=== PATIENT | female | born 1985 | race Caucasian/White ===

== ENCOUNTER 2017-02-20 01:05 | Inpatient (IN) | payer OTHER ==
[2017-02-20] MEDS ORDERED: TERBUTALINE SULFATE 1 MG/ML VIAL IV PRN (07:53)
[2017-02-20] MEDS ORDERED: LIDOCAINE 1% 30 ML SDV SC PRN (07:53)
[2017-02-20] MEDS ORDERED: LR 500 ML IV PRN (07:53)
[2017-02-20] MEDS ORDERED: LR 1,000 ML IV PRN (07:53)
[2017-02-20] MEDS ORDERED: EPSOM SALT 454 GM TP PRN (07:53)
[2017-02-20] MEDS ORDERED: OLIVE OIL 118 ML BTL MISC PRN (07:53)
[2017-02-20] MEDS ORDERED: OXYTOCIN/RINGERS LACTATE 1,000 ML IV PRN (07:53)
[2017-02-20] MEDS ORDERED: OLIVE OIL 118 ML BTL ONE (08:00)
[2017-02-20] MEDS ORDERED: OXYTOCIN/RINGERS LACTATE 500 ML IV SCH (08:00)
[2017-02-20] MEDS ORDERED: AMMONIA AROMATIC 1 EACH AMP IH ONE (08:00)
[2017-02-20] MEDS ORDERED: LIDOCAINE 1% 30 ML SDV ONE (08:00)
[2017-02-20] MEDS ORDERED: MISOPROSTOL 200 MCG TAB ONE (08:01)
[2017-02-20] MEDS ORDERED: TERBUTALINE SULFATE 1 MG/ML VIAL ONE (08:01)
[2017-02-20] MEDS ORDERED: OXYTOCIN 10 UNIT/ML VIAL ONE (08:01)
[2017-02-20 08:39] LABS: ABSOLUTE IMMATURE GRANULOCYTES 0.13 10^3/uL (0.00-0.10); ADD DIFF? NO; ADD MORPH? NO; ADD SCAN? NO; ATYPICAL LYMPHOCYTE FLAG 0 (0-99); FRAGMENT RBC FLAG 0 (0-99); HEMATOCRIT 37.5 % (38.0-47.0); HEMOGLOBIN 12.8 g/dL (12.6-16.3); LEFT SHIFT FLG 0 (0-99); LIPEMIA HEMOLYSIS FLAG 90 (0-99); MEAN CELL HEMOGLOBIN CONCENTR. 34.1 g/dL (32.4-36.7); MEAN CELL VOLUME 90.8 fL (81.5-99.8); MEAN PLATELET VOLUME 10.1 fL (8.7-11.7); PLATELET CLUMPS FLAG 0 (0-99); PLATELET COUNT 189 10^3/uL (150-400); RED BLOOD CELL COUNT 4.13 10^6/uL (4.18-5.33); RED CELL DISTRIBUTION WIDTH 12.7 % (11.5-15.2)
--- NOTE | 2017-02-20 10:19 | GHP ---
[f rep st] PREOP HISTORY AND PHYSICAL DATE OF ADMISSION: 02/20/2017 ADMISSION DIAGNOSIS: Intrauterine at 39-5/7 weeks gestation with prodromal labor. HISTORY OF PRESENT ILLNESS: The patient is a 31-year-old 2 para 1-0-0-1, with a last menstr ual period of 05/18/2016, and an EDC of 02/22/2017, which was confirmed by a 9-week ultrasound. She has had good care at [facility] since registration at 9 weeks, and has no signif icant risk factors. She had normal labs on this . Her initial anatomy ultrasound revealed an estimated weight of 27th percentile. She had a followup ultrasound performed at 32 weeks, estimated weight was 41st percentile, everything was reassuring, and she has progres sed to 39 and 5. On the evening of the the patient began having contractions, which were incre asing in intensity. She presented to Labor and Delivery early in the morning on the with inten se contractions every 10 minutes, and she was 3 cm, 80%, -2. Patient rested overnight, did not prog ress, and her contractions remained irregularly spaced, and we reviewed options. The patient is 39- 5/7 weeks gestation, and desires augmentation/induction of labor today. Patient was offered all neymar atment options, we opted for Pitocin augmentation. Patient will get an epidural and then have artif icial rupture of membranes. PAST OBSTETRICAL HISTORY: In January of 2014 she had a viable male, 6 pounds 7 ounces, 32 weeks, spon taneous labor, without complication, and this is her current . Patient had significant hyp eremesis early in this , which was treated , and it has resolved. Patient has no significant gynecological problems. She had a normal menstrual triad. She has used oral contracep tive and NuvaRing, and the Mirena IUD for control in her life. She denies history of abnormal Paps or STD's. Patient has no significant past medical problems, no surgical history. ALLERGIES: No known drug allergies. CURRENT MEDICATIONS: Include vitamins, Probiotics, vitamin D. LABORATORY DATA: She is A positive, antibody negative, RPR nonreactive, rubella immune, hepatitis n egative, HIV negative, cystic fibrosis, SMA, fragile X negative, Pap normal, gonorrhea and chlamydia negative. She declined genetic screening in this . A 1-hour GTT was 89, GBS was negative . SOCIAL HISTORY: She is . She lives with her , Marky, and her son. She works in [employer]. She denies tobacco, alcohol or drug use. FAMILY HISTORY: Paternal grandfather of a myocardial infarction, both maternal and paternal gr andfathers did. Paternal grandfather had prostate cancer, paternal grandmother had a stroke, matern al grandmother had Alzheimer disease. No other significant family history. REVIEW OF SYSTEMS: Today is negative for a 10-point review of systems. Only significant symptoms a re her regular contractions, and good movement. No vaginal bleeding. OBJECTIVE: VITAL SIGNS: Today she is afebrile, vital signs are stable. heart tones are 130s , reactive, moderate variability, category 1. GENERAL: Contractions are every 4 minutes. Cervix is 3, 80%, -2, and rest of the physical exam is negative. ASSESSMENT AND PLAN: A 31-year-old 2 para 1-0-0-1 at 39-5/7 weeks gestation in prodromal la bor, desires augmentation of labor. Patient is started on Pitocin. She will have an epidural and a rtificial rupture of membranes. status is reassuring. /[id number]/MODL
[2017-02-20] MEDS ORDERED: BUPIVACAINE 0.25% 30 ML SDV ONE ×2 (10:42→10:46)
[2017-02-20] MEDS ORDERED: fentaNYL 2MCG/ML/BUP 0.1% RTU 100 ML BAG EP ONE (10:45)
[2017-02-20] MEDS ORDERED: PHENYLEPHRINE HCL 100 MCG/ML SYR ONE (10:47)
[2017-02-20] MEDS ORDERED: LR 500 ML IV SCH (11:30)
--- NOTE | 2017-02-20 12:24 | OBPROG ---
OBG Progress Note Assessment/Plan: Assessment: 31 y/o @ 39 5/7 weeks for augmentation of labor Plan: AROM now, epidural and pitocin in place. status is reassuring. 02/20/17 12:23 Subjective: Pt is now comfortable with her epidural. She is having contractions roughly Q 4 minutes. Objective: 02/20/17 08:25 Patient ABO/Rh A POSITIVE 02/20/17 08:25 - SVE Dilation (cm): 4 Effacement (%): 80 Station: -1 Current Contraction Pattern: Regular (Q4) FHR (bpm): 130 FHR Pattern Variability: Moderate FHR Category: 1 Membranes: AROM Amniotic Fluid Color: Clear ICD10 Worksheet Patient Problems: Problems Problem Status Onset membranes, spontaneous rupture Acute Normal spontaneous vaginal delivery Acute
[2017-02-20] MEDS ORDERED: SIMETHICONE 80 MG TAB CHEW PO PRN (14:32)
[2017-02-20] MEDS ORDERED: ACETAMINOPHEN 325 MG TAB PO PRN (14:32)
[2017-02-20] MEDS ORDERED: HYDROCODONE/APAP 5/325 TAB PO PRN (14:32)
[2017-02-20] MEDS ORDERED: HYDROCORTISONE 0.5% CREAM TP PRN (14:32)
--- NOTE | 2017-02-20 14:35 | OBPROC ---
- Labor and Delivery Onset of Contractions Date: 02/20/17 Onset of Contractions Time: 12:00 Onset of Contractions Type: Induced Rupture of Membranes Date: 02/20/17 Rupture of Membranes Time: 12:19 Rupture of Membranes Type: Artificial Amniotic Fluid Color: Clear Dilation Complete Time: 14:00 Delivery Type: Spontaneous Placenta Delivery Date: 02/20/17 Placenta Delivery Time: 14:19 Episiotomy/Laceration: 2nd Degree, Perineal Repair: 2-0, Vicryl EBL: 300 Complications: Nuchal Cord (loose x 1) - Medications Labor Augmentation/Induction Meds Used: Pitocin Labor Augmentation/Induction Indication: Elective Anesthesia: Epidural, Local (Specify) (1% lidocaine) - [place] Info Infant A Delivery Date: 02/20/17 Delivery Time: 14:14 Sex of Infant: Female Score (1 Min): 8 Score (5 Min): 9
[2017-02-20] MEDS: IBUPROFEN 600 MG TAB PO PRN ×2 (14:43→20:44)
[2017-02-20] MEDS: DOCUSATE SODIUM 100 MG CAP PO PRN (20:44)
[2017-02-21] MEDS: IBUPROFEN 600 MG TAB PO PRN ×2 (03:05→09:28)
[2017-02-21] MEDS: DOCUSATE SODIUM 100 MG CAP PO PRN (09:29)
--- NOTE | 2017-02-21 09:42 | SOAPPROG ---
SOAP Progress Note Assessment/Plan: Assessment: well pain well managed ff@u scant rubra lochia perineum approximated some swelling voiding without difficulty passing gas routine pericare Plan:discharge to home with instructions fu 4 weeks and 6 weeks, depression, ss infection, pain management, continue pnv, rest, pericare, pelvic rest, exercise , contraception, verbalized understanding of all of the above 02/21/17 09:39 Subjective: doing well. However some residual pain in pelvis, probable symphasis separation. well although worried about milk supply. consult today before discharge Objective: Vital Signs Temp Pulse Resp BP Pulse Ox 36.3 C 77 18 99/56 L 95 02/21/17 09:00 02/21/17 09:00 02/21/17 09:00 02/21/17 09:00 02/21/17 09:00 Laboratory Results 02/20/17 08:25 02/20/17 02/21/17 02/22/17 05:59 05:59 05:59 Intake Total 1500 Output Total 1000 Balance 500 - Time Spent With Patient Time Spent With Patient: 20 minures - Pending Discharge Pending Discharge Date: 02/21/17 Pending Discharge Time: 14:00 ICD10 Worksheet Patient Problems: Problems Problem Status Onset membranes, spontaneous rupture Acute Normal spontaneous vaginal delivery Acute
[2017-02-21 14:00] VITALS: BP 100/64; PULSE 73; RESP 17; TEMP 99; O2SAT 93
== END 2017-02-21 15:45 | disposition home or self-care (01) | DRG 775 ==
LOC: FLD 01:05 → OBSVTOIN 01:05 → FOB 17:41
PROVIDERS: ADMIT Obstetrics & Gynecology; ATTEND Obstetrics & Gynecology
PROC: 10E0XZZ Delivery of Products of Conception, External Approach (ICD-10-PCS; principal; 2017-02-20)
PROC: 0KQM0ZZ Repair Perineum Muscle, Open Approach (ICD-10-PCS; principal; 2017-02-20)
PROC: 10907ZC Drainage of Amniotic Fluid, Therapeutic from Products of Conception, Via Natural or Artificial Opening (ICD-10-PCS; principal; 2017-02-20)
DX: O62.9 Abnormality of forces of labor, unspecified (principal); Z37.0 Single live birth; O69.82X0 Labor and delivery complicated by other cord entanglement, without compression, not applicable or unspecified; O70.1 Second degree perineal laceration during delivery; Z3A.39 39 weeks gestation of pregnancy
CPT/HCPCS: 97161-GP; J2370; J2590; J3105